=== PATIENT | female | born 1995 | race Caucasian/White ===

== ENCOUNTER 2022-07-07 10:58 | Emergency (ER) | payer BC ==
[~2022-07-07] VITALS: Ht 157.5 cm; Wt 77.1 kg
[2022-07-07] MEDS ORDERED: FLUO20CA36 PO (11:14)
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
[2022-07-07] MEDS ORDERED: NAPR-1192 PO (11:43)
--- NOTE | 2022-07-07 11:50 | NUR ---
Patient discharged to home in stable condition. Written and verbal after care instructions given. Patient verbalizes understanding of instructions. Stressed follow up or return to ER for worsening s/s.
[2022-07-07 11:51] VITALS: BP 125/70
== END 2022-07-07 11:50 | disposition home or self-care (01) ==
LOC: ER 10:58
DX: S16.1XXA Strain of muscle, fascia and tendon at neck level, initial encounter (principal); V43.53XA Car driver injured in collision with pick-up truck in traffic accident, initial encounter; Y92.410 Unspecified street and highway as the place of occurrence of the external cause; R51.9 Headache, unspecified; M25.512 Pain in left shoulder; F32.A Depression, unspecified; Z79.899 Other long term (current) drug therapy
CPT/HCPCS: A4663